=== PATIENT | female | born 1940 | race Two or more races ===

== ENCOUNTER 2016-04-24 11:51 | Emergency (ER) | payer OTHER ==
[~2016-04-24] VITALS: Ht 160 cm; Wt 68.0 kg
[2016-04-24 12:11] VITALS: BP 127/77
[2016-04-24] MEDS ORDERED: KETOROLAC TROMETH 30 MG/ML 1ML VIAL IM ONE (13:30)
== END 2016-04-24 14:05 | disposition home or self-care (01) ==
LOC: ER 11:51
DX: M17.11 Unilateral primary osteoarthritis, right knee (principal); M25.461 Effusion, right knee; E11.9 Type 2 diabetes mellitus without complications
CPT/HCPCS: 73562; 96372; 99284; J1885